=== PATIENT | male | born 1995 | race Caucasian/White ===

== ENCOUNTER 2020-11-16 20:46 | Emergency (ER) | payer SELFPAY ==
[2020-11-16] MEDS ORDERED: AMOXICILLIN500 M2 PO (21:48)
[2020-11-16] MEDS ORDERED: VOLTAREN75 MG PO (21:48)
[2020-11-16 21:55] VITALS: BP 142/76
== END 2020-11-16 22:01 | disposition home or self-care (01) | DRG 159 ==
LOC: ED 20:46
DX: S03.41XA Sprain of jaw, right side, initial encounter (principal); S09.11XA Strain of muscle and tendon of head, initial encounter; K04.7 Periapical abscess without sinus; K02.9 Dental caries, unspecified; F17.210 Nicotine dependence, cigarettes, uncomplicated; W20.8XXA Other cause of strike by thrown, projected or falling object, initial encounter; Y93.89 Activity, other specified; Y92.89 Other specified places as the place of occurrence of the external cause; Y99.0 Civilian activity done for income or pay

== ENCOUNTER 2021-03-29 08:30 | Emergency (ER) | payer BC ==
[~2021-03-29] VITALS: Ht 190.5 cm; Wt 85.0 kg
[~2021-03-29 08:30] MED LIST: AMOXICILLIN500 M2 PO; VOLTAREN75 MG PO
[2021-03-29] MEDS ORDERED: SUBOXONE1 MI3 (08:41)
[2021-03-29] MEDS ORDERED: TORADOL PO (11:00)
[2021-03-29 11:15] VITALS: BP 133/71
== END 2021-03-29 11:15 | disposition home or self-care (01) | DRG 556 ==
LOC: ED 08:30
DX: M25.511 Pain in right shoulder (principal); F17.200 Nicotine dependence, unspecified, uncomplicated

== ENCOUNTER 2022-08-20 00:54 | Emergency (ER) | payer BC ==
[~2022-08-20] VITALS: Ht 190.5 cm; Wt 85.5 kg
[~2022-08-20 00:54] MED LIST changes: +SUBOXONE1 MI3; +TORADOL PO
[2022-08-20 01:04] VITALS: BP 155/101
[2022-08-20 01:15] VITALS: BP 143/82
[2022-08-20] MEDS ORDERED: AMOXICILLIN500 MG PO (01:23)
[2022-08-20] MEDS ORDERED: ULTRAM50 MG PO (01:23)
[2022-08-20 01:30] VITALS: BP 125/79
[2022-08-20 01:42] VITALS: BP 125/79
== END 2022-08-20 01:42 | disposition home or self-care (01) | DRG 159 ==
LOC: ED 00:54
DX: K04.7 Periapical abscess without sinus (principal); S02.5XXA Fracture of tooth (traumatic), initial encounter for closed fracture; F17.290 Nicotine dependence, other tobacco product, uncomplicated; X58.XXXA Exposure to other specified factors, initial encounter

== ENCOUNTER 2023-05-20 00:45 | Emergency (ER) | payer BC ==
[~2023-05-20] VITALS: Ht 190.5 cm; Wt 88.0 kg
[~2023-05-20 00:45] MED LIST changes: +AMOXICILLIN500 MG PO; +ULTRAM50 MG PO
[2023-05-20 00:56] VITALS: BP 139/75
[2023-05-20] MEDS ORDERED: ADDERALL10 MG PO (01:05)
[2023-05-20] MEDS ORDERED: ACETAMINOPHEN 500 MG TAB PO ONE (01:35)
[2023-05-20 02:15] VITALS: BP 139/75
[2023-05-20] MEDS ORDERED: CLINDAMYCIN300 M1 PO (02:22)
[2023-05-20] MEDS ORDERED: AMOXICILLIN TRIHYDRATE 500 MG/CAP PO ONE (02:25)
== END 2023-05-20 02:29 | disposition home or self-care (01) | DRG 158 ==
LOC: ED 00:45
DX: K04.7 Periapical abscess without sinus (principal); F11.20 Opioid dependence, uncomplicated; Z72.0 Tobacco use